=== PATIENT | female | born 1970 | race Caucasian/White ===

== ENCOUNTER 2023-10-03 16:27 | Emergency (ER) | payer BC ==
[~2023-10-03] VITALS: Ht 162.6 cm; Wt 125.6 kg
[2023-10-03 16:37] VITALS: BP 179/78; PULSE 82; RESP 17; TEMP 98; O2SAT 97
[2023-10-03] MEDS ORDERED: AMOX-117 PO (17:26)
== END 2023-10-03 17:42 | disposition home or self-care (01) ==
LOC: ER 16:28
DX: J01.90 Acute sinusitis, unspecified (principal); R42 Dizziness and giddiness
CPT/HCPCS: 99283